=== PATIENT | female | born 1940 | race Caucasian/White ===

== ENCOUNTER 2024-05-17 18:03 | Emergency (ER) | payer MEDICARE, SELFPAY ==
[2024-05-17 18:11] VITALS: BP 149/74; PULSE 100; RESP 16; TEMP 36.5; O2SAT 96; BMI 21.9
--- NOTE | 2024-05-17 18:15 | DI.RAD.S_ITS ---
PROCEDURE: XR CHEST 1V INDICATIONS: eval for PNA TECHNIQUE: One view of the chest was acquired. COMPARISON: None. FINDINGS: Surgical changes and devices: Vertebral augmentation. Lungs and pleura: Branching nodularity in the left upper lung zone and right middle lung zone. Mediastinum: Mediastinal contours appear normal. Heart size is normal. Bones and chest wall: No suspicious bony lesions. Overlying soft tissues appear unremarkable. IMPRESSION: Bilateral branching nodularity, probably indicating infectious or inflammatory bronchiolitis. Dictated by: Abdi Vega M.D. on 05/17/2024 at 18:52 Approved by: Abdi Vega M.D. on 05/17/2024 at 18:52
[2024-05-17 19:41] VITALS: PULSE 71; O2SAT 95
[2024-05-17 19:43] VITALS: BP 130/65; PULSE 71; O2SAT 97
--- NOTE | 2024-05-17 19:46 | PC.NURSE ---
Recent travel from [place].
[2024-05-17 20:00] VITALS: BP 136/70; PULSE 71; O2SAT 95
[2024-05-17 20:23] LABS: Influenza A - CEPHEID Flu A NEGATIVE (NEGATIVE); Influenza B - CEPHEID Flu B NEGATIVE (NEGATIVE); Respiratory Syncytial Virus Negative (Negative)
[2024-05-17 20:25] LABS: COVID-19 CEPHEID 4-PLEX PCR Negative (Negative)
[2024-05-17 20:30] VITALS: PULSE 68; O2SAT 95
--- NOTE | 2024-05-17 20:37 | ED.GENADULT ---
HPI - General Adult General Chief complaint: Upper Respiratory Symptoms Stated complaint: congestion, coughing fits Time Seen by Provider: 05/17/24 20:18 Source: patient Mode of arrival: Ambulatory History of Present Illness HPI narrative: Patient is an 84-year-old female. Recent travel to local area from [place]. Is here for evaluation of congestion, productive cough, shortness of breath with coughing and having paroxysmal of coughing. No chest pain. No vomiting. Subjective fevers. No skin changes. No underlying lung pathology. Does not require oxygen on a regular basis. Related Data Previous Rx's Medication Instructions Recorded azithromycin 250 mg tablet 250 mg PO DAILY 4 days #4 tabs 05/17/24 Allergies Allergy/AdvReac Type Severity Reaction Status Date / Time No Known Drug Allergies Allergy Verified 05/17/24 18:14 Review of Systems Review of Systems ROS Unobtainable: All systems reviewed & are unremarkable except as noted in HPI and below Patient History Social History Smoking Status: Never smoker Smoking Status: Never smoker Exam Initial Vital Signs Initial Vital Signs: Vital Signs Temperature 97.7 F 05/17/24 18:11 Pulse Rate 100 H 05/17/24 18:11 Respiratory Rate 16 05/17/24 18:11 Blood Pressure 149/74 H 05/17/24 18:11 Pulse Oximetry 96 05/17/24 18:11 Oxygen Delivery Method Room Air 05/17/24 18:11 Const General: cooperative and comfortable HENMT Head: normal to inspection Resp Effort & Inspection: normal respiratory effort and cough Auscultation: rhonchi Cardio Rate: regular rate Rhythm: regular rhythm Skin General: no rashes or lesions noted Neuro General: patient alert, patient awake and moves all extremities Extrem General: No edema Course Orders Ordered: ED Orders 05/17/24 18:15 XR chest 1V Stat 05/17/24 19:43 Covid-19 + FLU A/B + RSV - PCR Stat Discontinued Medications Azithromycin (Azithromycin 250 Mg Tablet) 500 mg PO NOW ONE Stop: 05/17/24 20:38 Last Admin: 05/17/24 20:42 Dose: 500 mg Documented By: AB Vital Signs Vital signs: Vital Signs - 8 hr 05/17/24 18:11 05/17/24 19:41 05/17/24 19:43 Temperature 97.7 F Pulse Rate 100 H 71 Respiratory Rate 16 Blood Pressure 149/74 H 130/65 Pulse Oximetry 96 95 Oxygen Delivery Method Room Air 05/17/24 19:43 05/17/24 20:00 05/17/24 20:00 Temperature Pulse Rate 71 71 Respiratory Rate Blood Pressure 136/70 Pulse Oximetry 97 95 Oxygen Delivery Method Room Air 05/17/24 20:30 Temperature Pulse Rate 68 Respiratory Rate Blood Pressure Pulse Oximetry 95 Oxygen Delivery Method Room Air Medical Decision Making Lab Data Lab results reviewed: Yes I reviewed the patient's lab results. Labs: Lab Results 05/17/24 Range/Units 19:43 SARS-CoV-2 (PCR) Negative (Negative) Influenza A (RT-PCR) Flu a negative (NEGATIVE) Influenza B (RT-PCR) Flu b negative (NEGATIVE) RSV (PCR) Negative (Negative) Imaging Data Chest x-ray: Radiologist's Impression: PROCEDURE: XR CHEST 1V INDICATIONS: eval for PNA TECHNIQUE: One view of the chest was acquired. COMPARISON: None. FINDINGS: Surgical changes and devices: Vertebral augmentation. Lungs and pleura: Branching nodularity in the left upper lung zone and right middle lung zone. Mediastinum: Mediastinal contours appear normal. Heart size is normal. Bones and chest wall: No suspicious bony lesions. Overlying soft tissues appear unremarkable. IMPRESSION: Bilateral branching nodularity, probably indicating infectious or inflammatory bronchiolitis. MDM Narrative Medical decision making narrative: Patient was had subjective fevers, productive cough, coarse breath sounds. Chest x-ray shows concern for infection. Given her presentation will treat her as an atypical pneumonia. Low suspicion for ACS. She was not clinically in heart failure. Low suspicion for pulmonary embolism given her presentation in her symptoms. Patient was given antibiotics. Prescription was sent to the pharmacy of her choice. She was given return precautions. She expressed understanding and agreement with plan. Discharge Plan Departure Patient Disposition: Home Clinical Impression: Atypical pneumonia Activity Restrictions/Additional Instructions: I do recommend that you take the antibiotics as directed. Continue to take the rest of your medications as directed as well. Contact your primary doctor when you return home for follow-up. Return to the emergency department for new symptoms. Prescriptions: New azithromycin 250 mg tablet 250 mg PO DAILY 4 Days Qty: 4 0RF Rx Instructions: start on day 2 of therapy Referrals: Miscellaneous,[facility] [Primary Care Provider] - Stand Alone Forms: Patient Portal/API/Survey
[2024-05-17] MEDS: AZITHROMYCIN 250 MG TABLET 500 MG PO (20:42)
== END 2024-05-17 20:48 | disposition home or self-care (01) ==
PROVIDERS: Emergency Provider Emergency Medicine
DX: J18.9 Pneumonia, unspecified organism (principal)
CPT/HCPCS: 0241U; 71045; 99283